=== PATIENT | female | born 1990 | race Caucasian/White ===

== ENCOUNTER → 2023-09-16 09:03 | Outpatient (CLI) | payer OTHER, SELFPAY ==
[2023-09-16 10:26] LABS: Add Manual Diff / Slide Review NO; Basophils Absolute Auto 100 /uL (0-100); Basophils Percent Auto 0.8 % (0-2); Eosinophils Absolute Auto 600 /uL (0-450); Eosinophils Percent Auto 9.4 % (2-4); Hematocrit 35.2 % (36-46); Hemoglobin 12.1 g/dL (12.0-16.0); Lymphocytes Absolute Auto 2200 /uL (1100-4500); Lymphocytes Percent Auto 34.8 % (25-40); Mean Corpuscular HGB Conc 34.4 % (30-36); Mean Corpuscular Hemoglobin 30.1 PG (26-34); Mean Corpuscular Volume 87.7 fL (80-100); Monocytes Absolute Auto 400 /uL (0-900); Monocytes Percent Auto 6.2 % (3-14); Neutrophils Absolute Auto 3000 /uL (1500-7000); Neutrophils Percent Auto 48.8 % (50-75); Platelet Count 276 X10^3/uL (150-400); Red Blood Cell Count 4.02 X10^6/uL (4.0-5.2); Red Cell Distribution Width 12.8 % (11.6-14.8); White Blood Cell Count 6.2 X10^3/uL (4.5-11.0)
[2023-09-16 10:44] LABS: HEMOLYSIS < 15 (0-50)
[2023-09-16 10:59] LABS: Alanine Aminotransferase 14 IU/L (<35); Albumin 4.6 g/dL (3.5-5.0); Albumin Globulin Ratio 1.5 (1.0-2.8); Alkaline Phosphatase 47 U/L (38-126); Aspartate Aminotransferase 21 IU/L (14-36); BUN Creatinine Ratio 18.6 (6-22); Bilirubin Total 0.6 mg/dL (0.2-1.3); Blood Urea Nitrogen 11 mg/dL (7-17); Calcium 10.3 mg/dL (8.4-10.2); Carbon Dioxide 26 mmol/L (22-32); Chloride 105 mmol/L (98-107); Cholesterol 280 mg/dL (140-199); Estimated Glomerular Filt Rate > 60 mL/min (>60); Glucose 91 mg/dL (70-100); HDL Cholesterol 52 mg/dL (40-60); LDL Cholesterol Calculated 164 mg/dL (<100); Potassium 5.1 mmol/L (3.4-5.1); Sodium 138 mmol/L (137-145); Total Protein 7.6 g/dL (6.3-8.2); Triglycerides 321 mg/dL (35-150)
[2023-09-16 11:06] LABS: Follicle Stimulating Hormone 3.97 mIU/mL
[2023-09-17 12:36] LABS: Ferritin 12 ng/mL (6-137)
[2023-09-17 20:51] LABS: Hemoglobin A1C% w Est Avg Glu 4.7 % (4.0-6.0)
[2023-09-18 09:24] LABS: TSH w/ Reflex to FT4 1.41 uIU/mL (0.47-4.68)
[2023-09-20 18:19] LABS: Estrogen 394 pg/mL (.)
== END ==
LOC: LAB 09:04
PROVIDERS: PCP Family Medicine; Referring Provider Family Medicine; Visit Provider Family Medicine
DX: Z00.00 Encounter for general adult medical examination without abnormal findings (principal); N92.0 Excessive and frequent menstruation with regular cycle; Z13.220 Encounter for screening for lipoid disorders; R53.83 Other fatigue; Z87.59 Personal history of other complications of pregnancy, childbirth and the puerperium
CPT/HCPCS: 36415; 80053; 80061; 82672; 82728; 83001; 83036; 84443; 85025

== ENCOUNTER → 2023-10-09 14:25 | Outpatient (CLI) | payer OTHER, SELFPAY ==
--- NOTE | 2023-10-09 14:26 | DI.US.S_ITS ---
PROCEDURE: US PELVIC COMPLETE INDICATIONS: Ongoing menorrhagia x 3 years TECHNIQUE: Real-time scanning was performed of the pelvic organs, with image documentation. Additional endovaginal scanning was necessary due to incomplete visualization of the adnexal and endometrial structures by transabdominal scanning. COMPARISON: None. FINDINGS: Uterus: Uterus is anteverted and normal in size at 8.3 x 4.4 x 4.5 cm. The myometrium is heterogeneous. The endometrium measures 4 mm combined thickness. Cervix and vagina are within normal limits. Ovaries: The right ovary measures 2.9 x 2.5 x 2 cm, with a calculated ovarian volume of 7.5 cc. The left ovary measures 3.2 x 2.1 x 2.5 cm, with a calculated ovarian volume of 8.7 cc. The ovaries have a normal sonographic appearance. There is a dominant left-sided follicle measuring 1.7 x 1.1 x 1.3 cm. Less than 12 follicles can be seen in each ovary. No adnexal masses are seen. Other: No pathologic free abdominal or pelvic fluid. IMPRESSION: 1. Endometrial thickness is normal at 4 mm. 2. Heterogeneous myometrium which may be seen in the setting of adenomyosis. 3. Normal sonographic appearance of the bilateral ovaries We strive to produce accurate, complete, and clear reports of imaging services. To assist us in improving patient care, this report was composed using standard report templates and voice recognition software. Therefore, it may contain abnormal punctuation, insertions and/or omissions. Occasional wrong-word or sound-alike substitutions may occur. Though we review the report and make efforts to correct it, we do recommend that the report be read carefully in proper context to recognize any text inaccuracies. Dictated by: Kevin Kenney M.D. on 10/09/2023 at 15:11 Approved by: Kevin Kenney M.D. on 10/09/2023 at 15:16
== END ==
PROVIDERS: PCP Family Medicine; Referring Provider Family Medicine; Visit Provider Family Medicine
DX: Z00.00 Encounter for general adult medical examination without abnormal findings (principal); N92.0 Excessive and frequent menstruation with regular cycle; Z13.220 Encounter for screening for lipoid disorders; R53.83 Other fatigue; Z87.59 Personal history of other complications of pregnancy, childbirth and the puerperium
CPT/HCPCS: 76830; 76856

== ENCOUNTER → 2024-09-01 08:47 | Outpatient (CLI) | payer OTHER, SELFPAY ==
[2024-09-01 09:43] LABS: Cholesterol 313 mg/dL (140-199); Triglycerides 446 mg/dL (35-150)
[2024-09-01 10:33] LABS: HDL Cholesterol 48 mg/dL (40-60)
== END ==
PROVIDERS: PCP Family Medicine; Referring Provider Family Medicine; Visit Provider Family Medicine
DX: E78.5 Hyperlipidemia, unspecified (principal)
CPT/HCPCS: 36415; 80061

== ENCOUNTER → 2024-09-06 10:24 | Outpatient (CLI) | payer OTHER, SELFPAY ==
--- NOTE | 2024-09-06 10:27 | DI.RAD.S_ITS ---
PROCEDURE: XR LUMBAR SPINE 2-3V INDICATIONS: query disc herniation TECHNIQUE: 3 views of the lumbar spine were acquired. COMPARISON: None. FINDINGS: Bones: 5 [id number] vertebrae are present. There is normal bony alignment. No vertebral body compression fractures. No suspicious bony lesions. Soft tissues: Overlying bowel gas pattern is normal. No suspicious soft tissue calcifications. IMPRESSION: Normal alignment without evidence of acute osseous abnormality. Dictated by: Rodrigo Funes M.D. on 09/07/2024 at 4:14 Approved by: Rodrigo Funes M.D. on 09/07/2024 at 4:14
[2024-09-06 11:19] LABS: Add Manual Diff / Slide Review NO; Basophils Absolute Auto 100 /uL (0-100); Eosinophils Absolute Auto 500 /uL (0-450); Eosinophils Percent Auto 6.9 % (2-4); Hematocrit 35.8 % (36-46); Hemoglobin 12.6 g/dL (12.0-16.0); Lymphocytes Absolute Auto 2500 /uL (1100-4500); Lymphocytes Percent Auto 33.1 % (25-40); Mean Corpuscular HGB Conc 35.2 % (30-36); Mean Corpuscular Hemoglobin 30.5 PG (26-34); Mean Corpuscular Volume 86.5 fL (80-100); Monocytes Absolute Auto 600 /uL (0-900); Monocytes Percent Auto 7.6 % (3-14); Neutrophils Absolute Auto 3900 /uL (1500-7000); Neutrophils Percent Auto 51.4 % (50-75); Platelet Count 268 X10^3/uL (150-400); Red Blood Cell Count 4.14 X10^6/uL (4.0-5.2); White Blood Cell Count 7.6 X10^3/uL (4.5-11.0)
[2024-09-06 12:05] LABS: Alanine Aminotransferase 17 IU/L (<35); Albumin 4.8 g/dL (3.5-5.0); Albumin Globulin Ratio 1.7 (1.0-2.8); Alkaline Phosphatase 43 U/L (38-126); Aspartate Aminotransferase 22 IU/L (14-36); BUN Creatinine Ratio 20.3 (6-22); Bilirubin Total 0.8 mg/dL (0.2-1.3); Blood Urea Nitrogen 13 mg/dL (7-17); Calcium 10.4 mg/dL (8.4-10.2); Carbon Dioxide 22 mmol/L (22-32); Chloride 104 mmol/L (98-107); Estimated Glomerular Filt Rate > 60 mL/min (>60); Globulin 2.8 g/dL (1.7-4.1); Glucose 99 mg/dL (70-100); HEMOLYSIS < 15 (0-50); Sodium 136 mmol/L (137-145); Total Protein 7.6 g/dL (6.3-8.2)
[2024-09-06 12:11] LABS: Rheumatoid Factor < 8.6 IU/mL (<12.0)
[2024-09-06 12:34] LABS: Thyroid Stimulating Hormone 1.36 uIU/mL (0.47-4.68)
[2024-09-08 18:40] LABS: ANA Screen, IFA Negative (.)
== END ==
PROVIDERS: PCP Family Medicine; Referring Provider Family Medicine; Visit Provider Family Medicine
DX: S39.92XA Unspecified injury of lower back, initial encounter (principal); M54.50 Low back pain, unspecified; M54.30 Sciatica, unspecified side; E66.3 Overweight; M25.50 Pain in unspecified joint; R53.1 Weakness; X58.XXXA Exposure to other specified factors, initial encounter
CPT/HCPCS: 36415; 72100; 80053; 84443; 85025; 86038; 86430

== ENCOUNTER → 2024-09-08 15:14 | Outpatient (CLI) | payer OTHER, SELFPAY ==
--- NOTE | 2024-09-12 14:32 | DIET.OUTPTC ---
Dietary Outpatient Consultation Note Consultation Date: 09/08/2024 Assessment: 33 y F referred to dietitian for hyperlipidemia, weakness, and overweight Reports is working on eating healthy to lose weight. Was exercising before hurt back. Has questions regarding recent labs values. TG 446, chol 313, HDL 48, A1c 5.1% on 09/01/24 Was suggested to start marine omega fatty acid/fish oil supplementation by PCP. Previous hx of IBS, constipation w/ bowel movement every 3 days (2-4 on [place] stool chart) Diet recall: not hungry til lunch- chx/fish 4-5 oz or 2 eggs 3x/wk, 1 c non-starchy veggies, 1 cup rice D-tacos or chx, 1 c vegs, 1c rice water, coke zero, no alcohol out to eat 2x/wk- once at [employer] where she gets chx sandwich and shares large fries with 3 kids (total for 4.5 g saturated fat) and other with getting pizza for movie night cooks w/ oil, no frying, rarely uses butter Ht: 5 ft 2 in Wt: 153 lb BMI: 28.0 UBW: 150-156 lb per EMR weights Nutrition Diagnosis: Inadequate fiber intake r/t out to eat 2x/wk and food and nutrition related knowledge deficit aeb <15 g fiber daily per diet recall Interventions: discussed the following topics and provided appropriate handouts -Review of nutrition related lab values and correlation with nutrition -Balanced meals and snacks in line with myplate, Mediterranean style of eating -Fiber, amounts, types -Fats, amounts, types, label reading -Portion sizing -Brainstormed appropriate meal plan based on food preferences -Education on label reading -Assessing hunger/fullness level -Sufficient energy intake daily Goals: -Increase energy intake and fiber with additional day time snack- i.e. smoothie w/ fruit, yogurt, spinach (pt has previously made these) -Fiber source when out to eat -Return to physical activity when cleared to do so/not in pain Impressions: pt has healthy diet, no excessive CHO or sugar intake and no excessive saturated fat intake, no alcohol intake, some concern for not eating enough food daily, encouraged additional fiber based snack EER: 28 g fiber, 80 fl oz Monitoring/Evaluations: [place] out of [place], f/u as needed Electronically Signed by: Danica Martinez 09/12/24 14:32 Clinical Dietitian [address] [address]
== END ==
PROVIDERS: PCP Family Medicine; Referring Provider Family Medicine
DX: E78.5 Hyperlipidemia, unspecified (principal); R53.1 Weakness; E66.3 Overweight; Z68.28 Body mass index [BMI] 28.0-28.9, adult; Z71.3 Dietary counseling and surveillance
CPT/HCPCS: 97802

== ENCOUNTER 2024-09-26 09:25 | Outpatient (RCR) | payer OTHER, SELFPAY ==
--- NOTE | 2024-09-26 10:30 | PT.OIE ---
Current Diagnoses Other chronic pain (09/26/24) Pain in unspecified joint (09/26/24) Low back pain, unspecified (09/26/24) Weakness (09/26/24) Past Medical History (Last Updated 09/06/24 @ 09:57 by Viji Wen DO) Adenomyosis of uterus Asthma Headache Hyperlipidemia Irritable bowel syndrome Menometrorrhagia Menorrhagia (~2020) Migraines (~2009) Neck pain Primary dysmenorrhea Past Surgical History (Last Reviewed 06/19/24 @ 15:13 by ORAL Cook) Anesthesia History of appendectomy Visit Care Team Role Provider Type Viji Wen DO Attending Provider Physician Family Provider Primary Care Provider Referring Provider Specialty: [facility] Practice Address: [address] [place] [address], [address], [facility] Email: [email or web address] Physical Therapy Initial Evaluation PT-OP-A Visit Information Start: 09/26/24 15:06 Freq: Status: Active Protocol: Document 09/26/24 09:45 DCW (Rec: 09/26/24 15:13 DCW [id number]) Out-Patient Physical Therapy Visit Information Visit Information Visit Type Initial Evaluation Visit Start Time 09:45 Visit Stop Time 10:30 Visit Number 1 Number of PAINT STRIPPER Visits 0 Evaluation Information Evaluation Date 09/26/24 PT-OP-B Current Condition Start: 09/26/24 15:06 Freq: Status: Active Protocol: Document 09/26/24 09:45 DCW (Rec: 09/26/24 17:38 DCW [id number]) Current Condition History of Current Condition Onset Date A few month history Current Complaints Left-sided low back pain, occasional radicular pain into left leg History of Current Condition Pt is a 33 year old female presenting a few months s/p low back strain. Pt reports she bent over to pickler helper a laundry basket, and experienced a sharp pain in her left lower back. Was pretty much out of commission for a week, and since has been getting better overall, but is still experiencing some increased pain lifting (pt has two children, ages 4 and 7 ) or sitting for an extended period of time (pt frequently has to drive to [facility]). Notes she has been trying to stretch daily, and has been trying to avoid lifting, but with her kids, it is difficult . Occasional pain in left leg, down to knee. PT-OP-C Subjective Start: 09/26/24 15:06 Freq: Status: Active Protocol: Document 09/26/24 09:45 DCW (Rec: 09/26/24 17:38 DCW [id number]) Patient Questionnaires Oswestry Low Back Index Oswestry Score 12/50 = 24% Oswestry Impairment 20 to 39% Impaired (Score 20- 39) PT-OP-F Manual Assessment Start: 09/26/24 15:06 Freq: Status: Active Protocol: Document 09/26/24 09:45 DCW (Rec: 09/26/24 17:44 DCW [id number]) Manual Assessments Soft Tissue Assessment Soft Tissue Mobility Assessment Moderate tone and tenderness to palpation 3/4: Wincing and withdraw along left Piriformis . Tenderness to palpation 2/4: pain with wincing along left distal erector spinae, proximal glute max PT-OP-K Range of Motion Start: 09/26/24 15:06 Freq: Status: Active Protocol: Document 09/26/24 09:45 DCW (Rec: 09/26/24 17:44 DCW [id number]) Lumbar Spine Range of Motion Lumbar Spine Active Degrees Testing Position Standing Flexion 50 Extension 15 Lateral Flexion Left 46 Lateral Flexion Right 47 Comments Lateral flexion measured in cm from fingertips to floor PT-OP-L Special Tests Start: 09/26/24 15:06 Freq: Status: Active Protocol: Document 09/26/24 09:45 DCW (Rec: 09/26/24 17:44 DCW [id number]) Special Tests Lumbar Spine Special Tests Straight Leg Raise Test Results Negative Slump Test Results Mildly increased tightness on left Prone Press Up Test Results Negative Compression Test Results Negative A-P Shearing Test Results Negative Hip Special Tests Piriformis Test Results Positive Left Jen's Test Results Negative TATIANA Test Results Negative PT-OP-Q Treatments Start: 09/26/24 15:06 Freq: Status: Active Protocol: Document 09/26/24 09:45 DCW (Rec: 09/26/24 15:13 DCW [id number]) Therapeutic Exercises Sidelying Exercises Clamshell Sidelying Exercise Name Clamshell Side left Sitting Exercises Trunk Extension Sitting Exercise Name Seated Trunk extension Resistance Lv 4 Piriformis Sitting Exercise Name Piriformis stretch - seated figure-4 Side left Standing Exercises Pallof Press Standing Exercise Name Pallof Press Side bilateral Resistance Lv 4 PT-OP-T Assessment and Plan Start: 09/26/24 15:06 Freq: Status: Active Protocol: Document 09/26/24 09:45 DCW (Rec: 09/27/24 12:26 DCW [id number]) Physical Therapy Assessment Rehab Potential Rehabilitation Potential Good Evaluation Complexity Number of Personal Factors/Comorbidities 1-2 Number of Body Systems Impaired 4 or More Clinical Presentation at Evaluation Stable Impairments Impairments Activity Tolerance,Functional Activities,Functional Mobility ,Pain,ROM,Strength,Tone Goals Three Impairment Core weakness limits ability to lift her kids at home Willow Machine Tender Goal (LTG) Pt to improve core strength in order to increase stability and enable her to lift her four year old without pain. LTG Duration 11/26/24 Two Impairment Pt experiences increased pain with frequent drive to [place] Willow Machine Tender Goal (LTG) Pt to report ability to sit in vehicle for 70 minutes without increased pain in order to improve ability to tolerate frequent trips to [place] LTG Duration 11/26/24 One Impairment Pt does not have an appropriate home exercise program Short Term Goal (STG) Pt to be independent and compliant with an appropriate HEP STG Duration 10/26/24 Assessment Summary Assessment Pt presents with signs and symptoms consistent with referring diagnosis. Appears to have radicular pain stemming from sciatic impingement at her piriformis, as well as a mild low back strain. Pt should likely benefit from skilled therapeutic intervention focusing on stretching, STM, core/back strengthening, hip mobility, and joint mobs. Pt does not appear to be testing positive for any spinal issues at this time, so will likely be better to focus on soft tissue tone and strengthening. Pt did well with initial exercises for HEP, felt they would be beneficial going forward. Physical Therapy Plan Frequency and Duration Frequency of Treatment 2x/Week Plan of Care Start Date 09/26/24 Plan of Care End Date 11/26/24 Therapeutic Interventions Therapeutic Interventions Home Exercise Program,Manual Therapy,Neuromuscular Re- education,Patient/Caregiver Education,Self-Care/Home Management,Soft Tissue Mobilization,Taping, Therapeutic Activities, Therapeutic Exercises Next Visit Focus/Plan Next Note Type Treatment Note Next Visit Plan Core/back strengthening, STM, flexibility
--- NOTE | 2024-09-26 10:30 | PT.OPPOC ---
Physical, Occupational & Speech Therapy At [facility] Current Diagnoses Other chronic pain (09/26/24) Pain in unspecified joint (09/26/24) Low back pain, unspecified (09/26/24) Weakness (09/26/24) Visit Care Team Role Provider Type Viji Wen DO Attending Provider Physician Family Provider Primary Care Provider Referring Provider Specialty: Family Practice Address: [address] [place] [address], [address], [facility] Email: [email or web address] Plan Of Care PT-OP-B Current Condition Start: 09/26/24 15:06 Freq: Status: Active Protocol: Document 09/26/24 09:45 DCW (Rec: 09/26/24 17:38 DCW [id number]) Current Condition History of Current Condition Onset Date A few month history Current Complaints Left-sided low back pain, occasional radicular pain into left leg History of Current Condition Pt is a 33 year old female presenting a few months s/p low back strain. Pt reports she bent over to shrimp picker a laundry basket, and experienced a sharp pain in her left lower back. Was pretty much out of commission for a week, and since has been getting better overall, but is still experiencing some increased pain lifting (pt has two children, ages 4 and 7 ) or sitting for an extended period of time (pt frequently has to drive to [facility]). Notes she has been trying to stretch daily, and has been trying to avoid lifting, but with her kids, it is difficult . Occasional pain in left leg, down to knee. PT-OP-T Assessment and Plan Start: 09/26/24 15:06 Freq: Status: Active Protocol: Document 09/26/24 09:45 DCW (Rec: 09/27/24 12:26 DCW [id number]) Physical Therapy Assessment Rehab Potential Rehabilitation Potential Good Evaluation Complexity Number of Personal Factors/Comorbidities 1-2 Number of Body Systems Impaired 4 or More Clinical Presentation at Evaluation Stable Impairments Impairments Activity Tolerance,Functional Activities,Functional Mobility ,Pain,ROM,Strength,Tone Goals Three Impairment Core weakness limits ability to lift her kids at home Longterm Goal (LTG) Pt to improve core strength in order to increase stability and enable her to lift her four year old without pain. LTG Duration 11/26/24 Two Impairment Pt experiences increased pain with frequent drive to [place] [facility] Goal (LTG) Pt to report ability to sit in vehicle for 70 minutes without increased pain in order to improve ability to tolerate frequent trips to [place] LTG Duration 11/26/24 One Impairment Pt does not have an appropriate home exercise program Short Term Goal (STG) Pt to be independent and compliant with an appropriate HEP STG Duration 10/26/24 Assessment Summary Assessment Pt presents with signs and symptoms consistent with referring diagnosis. Appears to have radicular pain stemming from sciatic impingement at her piriformis, as well as a mild low back strain. Pt should likely benefit from skilled therapeutic intervention focusing on stretching, STM, core/back strengthening, hip mobility, and joint mobs. Pt does not appear to be testing positive for any spinal issues at this time, so will likely be better to focus on soft tissue tone and strengthening. Pt did well with initial exercises for HEP, felt they would be beneficial going forward. Physical Therapy Plan Frequency and Duration Frequency of Treatment 2x/Week Plan of Care Start Date 09/26/24 Plan of Care End Date 11/26/24 Therapeutic Interventions Therapeutic Interventions Home Exercise Program,Manual Therapy,Neuromuscular Re- education,Patient/Caregiver Education,Self-Care/Home Management,Soft Tissue Mobilization,Taping, Therapeutic Activities, Therapeutic Exercises Next Visit Focus/Plan Next Note Type Treatment Note Next Visit Plan Core/back strengthening, STM, flexibility Plan of Care Dates Plan of Care Start Date 09/26/24 Plan of Care End Date 11/26/24 Electronically Signed by: Toby Noel, PT 09/27/24 [id number] If you are in agreement with this Plan of Care, please return a signed and dated copy. I have reviewed this Plan of Care and certify that the skilled therapy services above are required to meet the patient?s needs. Physician Signature Date Printed Name and Credentials Clinical Instructor Signature Printed Name and Credentials
--- NOTE | 2025-01-02 11:34 | PT.OPDS ---
Current Diagnoses Other chronic pain (09/26/24) Pain in unspecified joint (09/26/24) Low back pain, unspecified (09/26/24) Weakness (09/26/24) Visit Care Team Role Provider Type Viji Wen DO Attending Provider Physician Family Provider Primary Care Provider Referring Provider Specialty: Family Practice Address: [address] [place] [address], [address], [facility] Email: [email or web address] Visit Number Visit Number 1 Discharge Summary PT-OP-B Current Condition Start: 09/26/24 15:06 Freq: Status: Active Protocol: Document 09/26/24 09:45 DCW (Rec: 09/26/24 17:38 DCW [id number]) Current Condition History of Current Condition Onset Date A few month history Current Complaints Left-sided low back pain, occasional radicular pain into left leg History of Current Pt is a 33 year old female presenting a few months s/ Condition p low back strain. Pt reports she bent over to belt picker a laundry basket, and experienced a sharp pain in her left lower back. Was pretty much out of commission for a week, and since has been getting better overall, but is still experiencing some increased pain lifting ( pt has two children, ages 4 and 7) or sitting for an extended period of time (pt frequently has to drive to [facility]). Notes she has been trying to stretch daily, and has been trying to avoid lifting, but with her kids , it is difficult. Occasional pain in left leg, down to knee. PT-OP-C Subjective Start: 09/26/24 15:06 Freq: Status: Active Protocol: Document 09/26/24 09:45 DCW (Rec: 09/26/24 17:38 DCW [id number]) Patient Questionnaires Oswestry Low Back Index Oswestry Score 12/50 = 24% Oswestry Impairment 20 to 39% Impaired (Score 20-39) PT-OP-F Manual Assessment Start: 09/26/24 15:06 Freq: Status: Active Protocol: Document 09/26/24 09:45 DCW (Rec: 09/26/24 17:44 DCW [id number]) Manual Assessments Soft Tissue Assessment Soft Tissue Mobility Moderate tone and tenderness to palpation 3/4: Wincing Assessment and withdraw along left Piriformis. Tenderness to palpation 2/4: pain with wincing along left distal erector spinae, proximal glute max PT-OP-K Range of Motion Start: 09/26/24 15:06 Freq: Status: Active Protocol: Document 09/26/24 09:45 DCW (Rec: 09/26/24 17:44 DCW [id number]) Lumbar Spine Range of Motion Lumbar Spine Active Degrees Testing Position Standing Flexion 50 Extension 15 Lateral Flexion Left 46 Lateral Flexion 47 Right Comments Lateral flexion measured in cm from fingertips to floor PT-OP-L Special Tests Start: 09/26/24 15:06 Freq: Status: Active Protocol: Document 09/26/24 09:45 DCW (Rec: 09/26/24 17:44 DCW [id number]) Special Tests Lumbar Spine Special Tests Straight Leg Raise Test Results Negative Slump Test Results Mildly increased tightness on left Prone Press Up Test Results Negative Compression Test Results Negative A-P Shearing Test Results Negative Hip Special Tests Piriformis Test Results Positive Left Jen's Test Results Negative TATIANA Test Results Negative PT-OP-T Assessment and Plan Start: 09/26/24 15:06 Freq: Status: Active Protocol: Document 01/02/25 11:33 DCW (Rec: 01/02/25 11:34 DCW [id number]) Physical Therapy Assessment Assessment Summary Assessment Pt canceled follow-up after initial evaluation, has now not been seen in three months. Pt will be discharged from skilled therapy at this time. Physical Therapy Plan Discharge Physical Therapy Discharge Reasons No Longer Attending PT
== END 2025-01-02 14:53 | disposition home or self-care (01) ==
LOC: PHYS 09:25
PROVIDERS: Family Provider Family Medicine; PCP Family Medicine; Referring Provider Family Medicine; Visit Provider Family Medicine
DX: G89.29 Other chronic pain (principal); M54.50 Low back pain, unspecified; M25.50 Pain in unspecified joint; R53.1 Weakness
CPT/HCPCS: 97110; 97161